=== PATIENT | female | born 1980 | race Caucasian/White ===

== ENCOUNTER 2016-10-09 22:38 | Emergency (ER) | payer OTHER ==
[~2016-10-09] VITALS: Ht 165.1 cm; Wt 90.7 kg
[2016-10-10] MEDS ORDERED: TRIAMCINOLONE A15 G3 TOP (00:08)
--- NOTE | 2016-10-10 00:08 | ED SKIN/ALLERGY COMPLAINT ---
History of Present Illness General Chief Complaint: Allergy Symptoms Stated Complaint: "? ALLEGRIC REACTION, SWOLLEN HANDS/RT SIDE CHEEK" Source: patient Exam Limitations: no limitations Vital Signs & Intake/Output Vital Signs & Intake/Output Vital Signs Date Time Temp Pulse Resp B/P Pulse O2 O2 Flow FiO2 Ox Delivery Rate 10/10 0017 97.1 86 18 120/64 96 Room Air 10/09 2242 97.7 102 20 122/86 98 Room Air ED Intake and Output 10/10 0000 10/09 1200 Intake Total Output Total Balance Patient 200 lb Weight Allergies Uncoded Allergies: "LAUGHING GAS" (Intermediate, HIGH FEVER 10/09/16) Reconcile Medications Triamcinolone Acetonide 0.1 % OINT...G. 1 MAIRA TOP BID rash apply to affected area(s) Triamcinolone Acetonide 0.1 % CREAM..G. 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 UNKNOWN ALLERGEN BUT STATES IT STARTED AFTER SHE WAS CLEANING HER FISH TANK. TAKEX ZYRTEC DAILY AT BASELINE. NO RESPIRATORY DIFFICULTY OR DIFFICULTY SWALLOWING. Triage Nurses Notes Reviewed? yes Onset: Abrupt Duration: hour(s):, constant, continues in ED Timing: recent history Severity: moderate, severe Location: hands No Modifying Factors: none : No Patient currently breastfeeds: No HPI: 36-year-old female comes into the emergency room for further evaluation of redness and itching to her hands bilaterally. Patient reports that she was cleaning out the fish tank tonight. Patient reports that there is a high ammonia level in the fish sting. She did not use gloves. She will wash her hands together and noticed a rash shortly after. Itching. Patient reports that her right cheek feels slightly swollen and was itching as well and she had touched her face. Denies any other associated symptoms. Denies any tongue swelling shortness of breath. No diffuse rash. Past History Travel History Traveled to [place] past 21 day No Medical History Any Pertinent Medical History? see below for history Neurological: NONE EENT: allergies Cardiovascular: NONE Respiratory: NONE Gastrointestinal: NONE Hepatic: NONE Renal: NONE Musculoskeletal: LYME Psychiatric: NONE Endocrine: NONE Blood Disorders: NONE Cancer(s): NONE RAPID TRANSIT OPERATOR/Reproductive: NONE Surgical History Surgical History: non-contributory Psychosocial History What is your primary language Guatemalan Tobacco Use: Current Daily Use Daily Tobacco Use Amount/Type: => 5 Cigarettes daily ETOH Use: denies use Illicit Drug Use: denies illicit drug use Family History Hx Contributory? No Review of Systems Review of Systems Constitutional: Reports: no symptoms. EENTM: Reports: no symptoms. Respiratory: Reports: no symptoms. Cardiovascular: Reports: no symptoms. GI: Reports: no symptoms. Genitourinary: Reports: no symptoms. Musculoskeletal: Reports: no symptoms. Skin: Reports: see HPI. Neurological/Psychological: Reports: no symptoms. Hematologic/Endocrine: Reports: no symptoms. Immunologic/Allergic: Reports: no symptoms. All Other Systems: Reviewed and Negative Physical Exam Physical Exam General Appearance: well developed/nourished Head: atraumatic Eyes: Bilateral: normal appearance. Ears, Nose, Throat: normal ENT inspection, hearing grossly normal Neck: normal inspection Respiratory: no respiratory distress Back: normal inspection Extremities: patchy erythema to bilateral hands, no warmth, Neurologic/Psych: awake, alert, oriented x 3, normal mood/affect Skin: intact, rash Skin Problem Location: upper extremities Skin Problem Character: see above, Lymphatic: no anterior cervical david Progress Differential Diagnosis: abscess/cellulitis, allergic reaction, anaphylaxis, contact dermatitis, chemical burn Plan of Care: Current Medications Sig/[place] Start time Last Medication Dose Stop Time Status Admin Tetanus/Diphtheria 0.5 ML ONCE ONE 10/10 14 AC Toxoids Adsorbed 10/10 15 (Decavac) Comments: 10/10/2016 1:08:11 AM Contact dermatitis versus chemical burn. Patient was given a tetanus shot to be updated in case burn. Feel that this is more likely a contact dermatitis. Patient given topical steroid cream. Clinically looks well. Follow-up with primary care doctor. Return if any other concerns. Patient already irrigated and washed her hand thoroughly at home. Departure Departure Disposition: HOME OR SELF CARE Condition: Stable Clinical Impression Primary Impression: Contact dermatitis Referrals: AUSTEN GARCIA MD (PCP/Family) Additional Instructions: Use triamcinolone cream as prescribed. Follow-up with your primary care doctor in 2 days to be rechecked. Return if any other concerns worsening symptoms. Please go over all results of today's visit with your primary care doctor. Contact your primary care doctor to let them know you were here in the emergency room. There may be nonspecific findings which may not be related to your visit today here in the emergency room but may require further evaluation and chronic monitoring by your primary care doctor. If you had a laceration today the chance of foreign body always remains. You should follow-up with your primary care doctor for recheck in 3-5 days for a wound check. If you had an x-ray done there is a chance that a fracture could have been missed on initial read and you should follow-up with your primary care doctor for repeat x-rays if symptoms persist. If your blood pressure was elevated here in the emergency room please have rechecked by her primary care doctor within the next 48 hours by your primary care doctor. If you were prescribed a narcotic here in the emergency room or any type of controlled substances you're not allowed to drive while taking this medication or operate any type of heavy machinery. Narcotics can make you feel lightheaded dizziness nausea and can cause constipation. You may need to berry picker a stool softener. Thank you for choosing [facility] emergency room. Please return to the emergency room immediately if you have any other concerns worsening of symptoms. Departure Forms: Customer Survey General Discharge Information Prescriptions: Current Visit Scripts Triamcinolone Acetonide 1 MAIRA TOP BID #1 TUBE apply to affected area(s) Triamcinolone Acetonide 0.1 % TOP BID #1 TUBE
[2016-10-10] MEDS ORDERED: TRIAMCINOLONE A15 G1 TOP (00:11)
[2016-10-10 00:17] VITALS: BP 120/64
== END 2016-10-10 00:42 ==
LOC: ERH 22:38
DX: L25.9 Unspecified contact dermatitis, unspecified cause (principal); T23.409A Corrosion of unspecified degree of unspecified hand, unspecified site, initial encounter; T59.891A Toxic effect of other specified gases, fumes and vapors, accidental (unintentional), initial encounter
CPT/HCPCS: 90471; 90714

== ENCOUNTER 2016-11-21 21:34 | Emergency (ER) | payer OTHER ==
[~2016-11-21] VITALS: Ht 165.1 cm; Wt 90.7 kg
[~2016-11-21 21:34] MED LIST: TRIAMCINOLONE A15 G1 TOP; TRIAMCINOLONE A15 G3 TOP
--- NOTE | 2016-11-21 22:03 | ED GENERAL ADULT ---
History of Present Illness General Chief Complaint: General Adult Stated Complaint: "SWOLLEN THROAT" Source: patient Exam Limitations: no limitations Vital Signs & Intake/Output Vital Signs & Intake/Output Vital Signs Date Time Temp Pulse Resp B/P Pulse O2 O2 Flow FiO2 Ox Delivery Rate 11/217 98.3 72 18 148/82 98 Room Air 11/21 2204 98 Room Air 11/21 2140 99.0 92 18 151/85 96 Room Air ED Intake and Output 11/22 0000 11/21 1200 Intake Total Output Total Balance Patient 200 lb Weight Allergies Uncoded Allergies: TUNA FISH (Severe, THROAT SWELLING 11/21/16) Reconcile Medications Triamcinolone Acetonide 0.1 % OINT...G. 1 MAIRA TOP BID rash apply to affected area(s) Triamcinolone Acetonide 0.1 % CREAM..G. 0.1 % TOP BID RASH Triage Note: PT TO TRIAGE WITH C/O LUMP IN THROAT. 11AM PT FELT LIKE HER THROAT WAS SWOLLEN AND HAD HIVES OVER HER NECK, PT TOOK ZYRTEC AND SWELLING WENT DOWN. AT 8PM SWELLING CAME BACK AND PT TOOK BENADRYL WITH RELIEF OF SIMPTOMS. NOW PT FEEL LUMP IN HER THROAT. PT ALLERGIC TO TUNA AND HAD SALMON LAST NIGHT, ALSO PT STARTED ON NEW ?HERBAL VITAMINS LAST NIGHT. PT DENIES DIFFICULTY BREATHING OR SWALLOWING, NO RESP DISTRESS NOTED. VSS. Triage Nurses Notes Reviewed? yes : No Patient currently breastfeeds: No HPI: Patient is a 36-year-old female presents complaining of sensation of throat swelling onset at 11 AM this morning. 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 Patient this morning reports onset of left-sided throat swelling sensation. Patient took a dose of Zyrtec with improvement. This evening the sensation returned at approximately 8 PM and she took Benadryl and symptoms started to improve after approximately 15 minutes. Patient noticed redness to her neck and a hive present. Patient denies any tongue swelling, wheezing, dyspnea, chest pain, vomiting. (MARISEL ALFREDO,KINGSLEY) Past History Travel History Traveled to [place] past 21 day No Medical History Any Pertinent Medical History? see below for history Neurological: NONE EENT: allergies Cardiovascular: NONE Respiratory: NONE Gastrointestinal: NONE Hepatic: NONE Renal: NONE Musculoskeletal: LYME Psychiatric: NONE Endocrine: NONE Blood Disorders: NONE Cancer(s): NONE YOUTH WORKER/Reproductive: NONE Tetanus Vaccine: 10/10/16 Surgical History Surgical History: non-contributory Psychosocial History What is your primary language Kazakh Tobacco Use: Current Daily Use Daily Tobacco Use Amount/Type: => 5 Cigarettes daily Family History Hx Contributory? No (KINGSLEY FRANK) Review of Systems Review of Systems Constitutional: Denies: chills, fever. EENTM: Reports: throat swelling. Respiratory: Denies: cough, short of breath. Cardiovascular: Denies: chest pain. GI: Reports: no symptoms. Musculoskeletal: Reports: no symptoms. Skin: Reports: see HPI. Neurological/Psychological: Reports: no symptoms. Hematologic/Endocrine: Reports: no symptoms. Immunologic/Allergic: Reports: no symptoms. (KINGSLEY FRANK) Physical Exam Physical Exam General Appearance: well developed/nourished, alert, awake Head: atraumatic, normal appearance Eyes: Bilateral: normal appearance, PERRL, EOMI. Ears, Nose, Throat: normal pharynx, normal ENT inspection, hearing grossly normal Neck: normal inspection, supple, full range of motion Respiratory: normal breath sounds, chest non-tender, no respiratory distress, lungs clear Cardiovascular: regular rate/rhythm Gastrointestinal: soft, non-tender Back: normal inspection, normal range of motion Extremities: normal inspection, normal capillary refill, normal range of motion, no edema Neurologic/Psych: no motor/sensory deficits, awake, alert, oriented x 3, normal gait, normal mood/affect Skin: intact, normal color, warm/dry Core Measures ACS in differential dx? No CVA/TIA Diagnosis: No Severe Sepsis Present: No Septic Shock Present: No (KINGSLEY FRANK) Progress Differential Diagnoses I considered the following diagnoses in my evaluation of the patient: allergic reaction, anaphylaxis, contact dermatitis, pharyngitis, epiglottitis Plan of Care: Current Medications Sig/[place] Start time Last Medication Dose Stop Time Status Admin Dexamethasone 8 MG ONCE ONE 11/21 2214 UNVr (Decadron) 11/22 2215 No signs of anaphylaxis. Suspect allergic reaction given the patient's symptomatology and response to antihistamine medications. Patient took Benadryl at 8 PM, administered Decadron. Patient appears stable for discharge. (KINGSLEY FRANK) Initial ED EKG: none (KINGSLEY FRANK) Departure Departure Time of Disposition: 2216 Disposition: HOME OR SELF CARE Condition: Stable Clinical Impression Primary Impression: Allergic reaction Qualifiers: Encounter type: initial encounter Qualified Code: T78.40XA - Allergy, unspecified, initial encounter Referrals: AUSTEN GARCIA MD (PCP/Family) Additional Instructions: Continue taking the Zyrtec or Benadryl as previously directed. Follow-up with your doctor for further evaluation. Return to the emergency department immediately if tongue swelling, difficulty breathing, increasing throat swelling , vomiting, chest pain, worsening of symptoms. Departure Forms: Customer Survey General Discharge Information (KINGSLEY FRANK) PA/WHAT JOB TITLES MEAN Co-Sign Statement Statement: ED Attending supervision documentation- [] I saw and evaluated the patient. I have also reviewed all the pertinent lab results and diagnostic results. I agree with the findings and the plan of care as documented in the PA's/WHAT JOB TITLES MEAN's documentation. [x] I have reviewed the ED Record and agree with the PA's/WHAT JOB TITLES MEAN's documentation. [] Additions or exceptions (if any) to the PAs/WHAT JOB TITLES MEAN's note and plan are summarized below: [] (DG HASKINS DO) Critical Care Note Critical Care Note Critical Care Time: non-applicable (KINGSLEY FRANK)
[2016-11-21 22:47] VITALS: BP 148/82
== END 2016-11-21 22:47 ==
LOC: ERH 21:34
DX: T78.1XXA Other adverse food reactions, not elsewhere classified, initial encounter (principal)